=== PATIENT | female | born 1990 | race Hispanic/Latino ===

== ENCOUNTER 2021-11-10 15:50 | Emergency (ER) | payer MEDICARE ==
[~2021-11-10] VITALS: Ht 147.3 cm; Wt 36.3 kg
== END 2021-11-10 17:57 | disposition home or self-care (01) ==
LOC: ER 16:13
DX: U07.1 COVID-19 (principal); Q90.9 Down syndrome, unspecified; G40.909 Epilepsy, unspecified, not intractable, without status epilepticus
CPT/HCPCS: 71045; 99283